=== PATIENT | male | born 1945 ===

== ENCOUNTER 2024-03-06 12:14 | Inpatient (IN) | payer OTHER ==
[~2024-03-06] VITALS: Ht 185.4 cm; Wt 65.8 kg
[2024-03-06] MEDS ORDERED: TYLENOL325 M2 PO (13:50)
[2024-03-06] MEDS ORDERED: BETHANECHOL CHL25 MG PO (13:50)
[2024-03-06] MEDS ORDERED: CELECOXIB200 M1 PO (13:51)
[2024-03-06] MEDS ORDERED: CIPRO250 MG PO (13:51)
[2024-03-06] MEDS ORDERED: VITAMIN B-12100 MCG PO (13:52)
[2024-03-06] MEDS ORDERED: PROSCAR5 M1 PO (13:52)
[2024-03-06] MEDS ORDERED: LEVOTHYROXINE175 MCG PO (13:53)
[2024-03-06] MEDS ORDERED: AMITIZA24 MCG PO (13:53)
[2024-03-06] MEDS ORDERED: MELATONIN5 M7 PO (13:54)
[2024-03-06] MEDS ORDERED: OMEPRAZOLE40 MG PO (13:55)
[2024-03-06] MEDS ORDERED: SEROQUEL50 MG PO (13:57)
[2024-03-06] MEDS ORDERED: SENOKOT8.7 MG PO (13:57)
[2024-03-06] MEDS ORDERED: TRAZODONE100 MG PO (13:58)
[2024-03-06] MEDS ORDERED: FLOMAX0.4 MG PO (13:58)
[2024-03-06] MEDS ORDERED: LORazepam 1 MG TAB PO PRN (14:00)
[2024-03-06] MEDS ORDERED: Ziprasidone Mesylate 20 MG VIAL IM PRN (14:00)
[2024-03-06] MEDS ORDERED: ACETAMINOPHEN 325 MG TAB PO PRN (18:15)
[2024-03-06] MEDS ORDERED: Magnesium Hydroxide 30 ML UDC PO PRN (18:15)
[2024-03-06] MEDS ORDERED: MG-AL HYDROXIDE/SIMETICONE 30 ML UDC PO PRN (18:15)
[2024-03-06] MEDS ORDERED: Menthol/Zinc Oxide 4 GM THIN T PRN (18:20)
[2024-03-06 18:43] VITALS: BP 117/64
[2024-03-06 20:00] VITALS: BP 136/82
[2024-03-06] MEDS ORDERED: Mirtazapine 15 MG TAB PO SCH (21:00)
[2024-03-06] MEDS ORDERED: QUETIAPINE FUMARATE 50 MG TAB PO SCH (21:00)
[2024-03-06] MEDS ORDERED: FINASTERIDE 5 MG TAB PO SCH (21:00)
[2024-03-07] MEDS ORDERED: OMEPRAZOLE 20 MG CAP PO SCH (06:00)
[2024-03-07] MEDS ORDERED: Levothyroxine Sodium 175 MCG TAB PO SCH (06:00)
[2024-03-07 06:44] LABS: BASO % 0.5 % (0.0-1.0); EOS # 0.1 10*3/uL (0.0-0.4); EOS % 1.6 % (1.0-4.0); HEMATOCRIT 34.7 % (42.0-52.0); MEAN CELL VOLUME 99.1 fl (80.0-94.0); MEAN CORPUSCULAR HGB 32.3 pg (27.0-31.0); MEAN CORPUSCULAR HGB CONC 32.6 g/dl (33.0-37.0); MEAN PLATELET VOLUME 10.8 fl (9.6-12.3); MONO # 0.8 10*3/uL (0.1-1.0); MONO % 13.1 % (3.0-9.0); NEUT # 3.5 10*3/uL (2.3-7.9); NEUT % 53.7 % (47.0-73.0); PLATELET COUNT AUTOMATED 431 10*3/uL (130-400); RED CELL DISTRI WIDTH 13.9 % (0-14.5); WHITE BLOOD COUNT 6.4 10*3/uL (4.8-10.8)
[2024-03-07 07:03] LABS: ALKALINE PHOSPHATASE 86 U/L (46-116); BUN 24 mg/dl (9-23); CHLORIDE 104 mmol/L (98-107); CHOLESTEROL 129 mg/dL (<200); LDL CHOLESTEROL 77 mg/dL (9-159); POTASSIUM 4.3 mmol/L (3.4-5.1); TOTAL PROTEIN 6.5 gm/dL (6.0-8.0); TRIGLYCERIDES 80 mg/dl (<150)
[2024-03-07 07:07] LABS: SGPT/ALT < 7 U/L (5-49)
[2024-03-07 07:35] LABS: VITAMIN D, 25-HYDROXY 24.1 ng/mL (30-100)
[2024-03-07 08:00] VITALS: BP 154/83
[2024-03-07] MEDS ORDERED: Lubiprostone 24 MCG CAP PO SCH (09:00)
[2024-03-07] MEDS ORDERED: Rivastigmine Tartrate 4.6 MG/24 HR PATCH T SCH (10:55)
[2024-03-07] MEDS ORDERED: Water, Sterile 10 ML VIAL ONE (12:52)
[2024-03-07] MEDS ORDERED: DIVALPROEX (DR) 250 MG TAB PO SCH (13:00)
[2024-03-07 20:00] VITALS: BP 147/86
[2024-03-07] MEDS ORDERED: Memantine Hydrochloride 5 MG TAB PO SCH (21:00)
[2024-03-07] MEDS ORDERED: AMMONIUM LACTATE 12% LOTION T SCH (22:00)
[2024-03-08 08:00] VITALS: BP 138/78
[2024-03-08] MEDS ORDERED: Cholecalciferol 5,000 IU CAP (125 MCG) PO SCH (09:00)
[2024-03-08 20:00] VITALS: BP 115/74
[2024-03-08] MEDS ORDERED: Memantine Hydrochloride 5 MG TAB PO SCH (21:00)
[2024-03-09 08:00] VITALS: BP 131/75
[2024-03-09] MEDS ORDERED: Rivastigmine Tartrate 9.5 MG/24 HR PATCH T SCH (09:00)
[2024-03-09] MEDS ORDERED: IOHEXOL 300 MG/ML 100 ML VIAL IV ONE (10:00)
[2024-03-09] MEDS ORDERED: Ondansetron Hydrochloride 4 MG TAB PO PRN (15:20)
[2024-03-09] MEDS ORDERED: BISACODYL 5 MG TAB PO PRN (15:20)
[2024-03-09] MEDS ORDERED: SODIUM CHLORIDE 0.9% 500 ML IV ONE (16:00)
[2024-03-09 20:00] VITALS: BP 104/55
[2024-03-09] MEDS ORDERED: Memantine Hydrochloride 10 MG TAB PO SCH (21:00)
[2024-03-10 08:00] VITALS: BP 125/66
[2024-03-10] MEDS ORDERED: hydrOXYzine pamoate 25 MG CAP PO PRN (09:15)
[2024-03-10] MEDS ORDERED: DIVALPROEX SODIUM 125 MG TAB PO SCH (13:00)
[2024-03-10 20:00] VITALS: BP 132/65
[2024-03-11 08:07] VITALS: BP 128/92
[2024-03-11] MEDS ORDERED: RIVASTIGMINE 13.3 MG/24 HR TDM T SCH (09:00)
[2024-03-11] MEDS ORDERED: DIVALPROEX (DR) 250 MG TAB PO SCH (09:00)
[2024-03-11] MEDS ORDERED: BREXPIPRAZOLE 1 MG TABLET PO SCH (09:00)
[2024-03-11] MEDS ORDERED: Water, Sterile 10 ML VIAL ONE (17:32)
[2024-03-11 20:00] VITALS: BP 144/80
[2024-03-12 08:30] VITALS: BP 120/75
[2024-03-12] MEDS ORDERED: Water, Sterile 10 ML VIAL IM PRN (15:45)
[2024-03-12] MEDS ORDERED: clonAZEPAM 0.5 MG TAB PO SCH (17:00)
[2024-03-12 20:00] VITALS: BP 140/85
[2024-03-12] MEDS ORDERED: CELECOXIB 200 MG CAP PO SCH (21:00)
[2024-03-13 08:32] VITALS: BP 135/73
[2024-03-13 09:59] LABS: HEMATOCRIT 35.4 % (42.0-52.0); MEAN CELL VOLUME 98.6 fl (80.0-94.0); MEAN CORPUSCULAR HGB CONC 32.5 g/dl (33.0-37.0); MEAN PLATELET VOLUME 11.4 fl (9.6-12.3); PLATELET COUNT AUTOMATED 375 10*3/uL (130-400); RED BLOOD COUNT 3.59 10*6/uL (4.50-5.90); RED CELL DISTRI WIDTH 14.2 % (0-14.5); WHITE BLOOD COUNT 19.6 10*3/uL (4.8-10.8)
[2024-03-13 10:00] LABS: MANUAL DIFF REFLEX YES
[2024-03-13 10:37] LABS: TOTAL CELLS COUNTED 100 #CELLS
[2024-03-13 10:38] LABS: ACANTHOCYTES FEW; BURR CELLS FEW; PLATELET SUFFICIENCY NORMAL (NORMAL); POLYCHROMASIA SLIGHT; TARGET CELLS FEW
[2024-03-13 10:53] LABS: ALKALINE PHOSPHATASE 92 U/L (46-116); BUN 28 mg/dl (9-23); CHLORIDE 102 mmol/L (98-107); POTASSIUM 4.2 mmol/L (3.4-5.1); TOTAL PROTEIN 6.8 gm/dL (6.0-8.0)
[2024-03-13 11:01] LABS: SGPT/ALT < 7 U/L (5-49)
[2024-03-13] MEDS ORDERED: [UNRECOGNIZED DRUG - OTHER] PO ONE (11:50)
[2024-03-13] MEDS ORDERED: MED. FROM HOME 1 EACH EA PO SCH (12:00)
[2024-03-13] MEDS ORDERED: BISACODYL 10 MG SUPP R ONE (12:30)
[2024-03-13 13:19] LABS: HEMATOCRIT 34.5 % (42.0-52.0); MEAN CELL VOLUME 97.7 fl (80.0-94.0); MEAN CORPUSCULAR HGB 32.3 pg (27.0-31.0); MEAN PLATELET VOLUME 11.6 fl (9.6-12.3); PLATELET COUNT AUTOMATED 340 10*3/uL (130-400); RED BLOOD COUNT 3.53 10*6/uL (4.50-5.90); RED CELL DISTRI WIDTH 14.5 % (0-14.5); WHITE BLOOD COUNT 16.9 10*3/uL (4.8-10.8)
[2024-03-13 13:20] LABS: MANUAL DIFF REFLEX YES
[2024-03-13 13:44] LABS: ACANTHOCYTES FEW; BURR CELLS FEW; OVALOCYTES FEW; PLATELET SUFFICIENCY NORMAL (NORMAL); POLYCHROMASIA SLIGHT; SCHISTOCYTES FEW; TARGET CELLS FEW; TOTAL CELLS COUNTED 100 #CELLS
[2024-03-13 15:51] LABS: BILIRUBIN Negative (Negative); BLOOD 2+ (Negative); CLARITY Cloudy (Clear); COLOR Yellow (Yellow); GLUCOSE Negative (Negative); KETONE 1+ (Negative); NITRITE Negative (Negative); PH 6.5 (4.5-8.0)
[2024-03-13 15:52] LABS: LEUKO ESTERASE 3+ (Negative)
[2024-03-13 15:59] LABS: BACTERIA 4+; WBC 41-50 wbc/hpf (0-5)
[2024-03-13] MEDS ORDERED: Amoxicillin/Clavulanate Pota 875 MG TAB PO SCH (18:00)
[2024-03-13 20:00] VITALS: BP 128/83
[2024-03-14 08:00] VITALS: BP 109/57
[2024-03-14] MEDS ORDERED: DIVALPROEX (DR) 500 MG TAB PO SCH (09:00)
[2024-03-14 09:38] LABS: BASO % 0.3 % (0.0-1.0); EOS # 0.1 10*3/uL (0.0-0.4); EOS % 0.7 % (1.0-4.0); HEMATOCRIT 38.6 % (42.0-52.0); MEAN CORPUSCULAR HGB 32.1 pg (27.0-31.0); MEAN CORPUSCULAR HGB CONC 32.4 g/dl (33.0-37.0); MEAN PLATELET VOLUME 11.7 fl (9.6-12.3); MONO # 1.1 10*3/uL (0.1-1.0); MONO % 11.5 % (3.0-9.0); NEUT # 7.6 10*3/uL (2.3-7.9); NEUT % 80.8 % (47.0-73.0); PLATELET COUNT AUTOMATED 368 10*3/uL (130-400); RED CELL DISTRI WIDTH 14.3 % (0-14.5); WHITE BLOOD COUNT 9.4 10*3/uL (4.8-10.8)
[2024-03-14] MEDS ORDERED: hydrOXYzine hydrochloride 50 MG/ML VIAL IM PRN (15:30)
[2024-03-14] MEDS ORDERED: hydrOXYzine pamoate 25 MG CAP PO PRN (15:30)
[2024-03-14] MEDS ORDERED: AMOXICILLIN 500 MG CAP PO SCH (22:00)
[2024-03-14] MEDS ORDERED: AMOXICILLIN500 M3 PO (22:26)
[2024-03-15 06:36] LABS: ALKALINE PHOSPHATASE 85 U/L (46-116); CHLORIDE 103 mmol/L (98-107); POTASSIUM 3.8 mmol/L (3.4-5.1); SGPT/ALT 12 U/L (5-49); TOTAL PROTEIN 6.9 gm/dL (6.0-8.0)
[2024-03-15 06:39] LABS: BUN 39 mg/dl (9-23)
[2024-03-15 08:32] VITALS: BP 141/69
[2024-03-15] MEDS ORDERED: DIVALPROEX SODIUM 125 MG CAP PO SCH (13:00)
[2024-03-15 20:00] VITALS: BP 132/65
[2024-03-16 08:31] VITALS: BP 110/66
[2024-03-16 20:00] VITALS: BP 124/65
[2024-03-16] MEDS ORDERED: risperiDONE 1 MG ODT BC SCH (21:00)
[2024-03-17 08:33] VITALS: BP 110/60
[2024-03-17 18:40] VITALS: BP 119/89
[2024-03-18 08:00] VITALS: BP 96/40
[2024-03-18 20:00] VITALS: BP 110/60
[2024-03-18] MEDS ORDERED: DULoxetine Hydrochloride 30 MG CAP PO SCH (21:00)
[2024-03-19 08:36] VITALS: BP 110/55
[2024-03-19 20:00] VITALS: BP 135/112
[2024-03-20 08:00] VITALS: BP 95/55
[2024-03-20] MEDS ORDERED: DULoxetine Hydrochloride 30 MG CAP PO SCH (09:30)
[2024-03-20 20:00] VITALS: BP 116/90
[2024-03-21 08:00] VITALS: BP 119/54
[2024-03-21 20:00] VITALS: BP 97/61
[2024-03-22] MEDS ORDERED: GABAPENTIN800 MG PO (00:32)
[2024-03-22 08:00] VITALS: BP 121/56
[2024-03-22 10:25] LABS: BASO % 0.2 % (0.0-1.0); EOS # 0.1 10*3/uL (0.0-0.4); EOS % 0.7 % (1.0-4.0); HEMATOCRIT 33.5 % (42.0-52.0); MEAN CELL VOLUME 99.7 fl (80.0-94.0); MEAN CORPUSCULAR HGB 32.1 pg (27.0-31.0); MEAN CORPUSCULAR HGB CONC 32.2 g/dl (33.0-37.0); MEAN PLATELET VOLUME 11.7 fl (9.6-12.3); MONO # 1.3 10*3/uL (0.1-1.0); MONO % 14.6 % (3.0-9.0); NEUT # 5.9 10*3/uL (2.3-7.9); NEUT % 68.1 % (47.0-73.0); PLATELET COUNT AUTOMATED 280 10*3/uL (130-400); RED BLOOD COUNT 3.36 10*6/uL (4.50-5.90); RED CELL DISTRI WIDTH 14.4 % (0-14.5); WHITE BLOOD COUNT 8.6 10*3/uL (4.8-10.8)
[2024-03-22 10:56] LABS: ALKALINE PHOSPHATASE 70 U/L (46-116); BUN 42 mg/dl (9-23); CHLORIDE 104 mmol/L (98-107); POTASSIUM 3.8 mmol/L (3.4-5.1); SGPT/ALT 8 U/L (5-49)
[2024-03-22 20:00] VITALS: BP 115/40
[2024-03-22] MEDS ORDERED: risperiDONE 1 MG ODT BC SCH (21:00)
[2024-03-22 21:09] VITALS: BP 119/83
[2024-03-23 08:00] VITALS: BP 148/78
[2024-03-23] MEDS ORDERED: risperiDONE 0.5 MG ODT PEG SCH (09:00)
[2024-03-23 20:00] VITALS: BP 134/59
[2024-03-24 07:46] VITALS: BP 146/56
[2024-03-24] MEDS ORDERED: MEMANTINE HCL10 MG PO (08:44)
[2024-03-24] MEDS ORDERED: RIVASTIGMINE1 EAC2 T (08:44)
[2024-03-24] MEDS ORDERED: DULOXETINE HCL30 MG PO (08:44)
[2024-03-24] MEDS ORDERED: RISPERIDONE M-0.5 MG PEG (08:44)
[2024-03-24] MEDS ORDERED: RISPERIDONE1 M1 BC (08:44)
[2024-03-24] MEDS ORDERED: AMOXICILLIN500 M3 PO (15:06)
[2024-03-24 20:00] VITALS: BP 98/56
[2024-03-25 08:00] VITALS: BP 108/60
[2024-03-25 20:00] VITALS: BP 118/70
[2024-03-26 08:00] VITALS: BP 105/48
[2024-03-26 20:00] VITALS: BP 99/54
[2024-03-27 08:06] VITALS: BP 83/57
== END 2024-03-27 13:30 | disposition hospice, home (50) | DRG 883 ==
LOC: 3N 12:14
PROVIDERS: Counselor Professional; Internal Medicine Infectious Disease; Nurse Practitioner; Registered Nurse; ADMIT Psychiatry & Neurology Psychiatry; ATTEND Psychiatry & Neurology Psychiatry
PROC: GZHZZZZ Group Psychotherapy (ICD-10-PCS; principal; 2024-03-07)
PROC: GZ51ZZZ Individual Psychotherapy, Behavioral (ICD-10-PCS; 2024-03-07)
PROC: 0HBRXZZ Excision of Toe Nail, External Approach (ICD-10-PCS; 2024-03-21)
PROC: 0HBRXZZ Excision of Toe Nail, External Approach (ICD-10-PCS; 2024-03-21)
PROC: 0HBRXZZ Excision of Toe Nail, External Approach (ICD-10-PCS; 2024-03-21)
PROC: 0HBRXZZ Excision of Toe Nail, External Approach (ICD-10-PCS; 2024-03-21)
PROC: 0HBRXZZ Excision of Toe Nail, External Approach (ICD-10-PCS; 2024-03-21)
PROC: 0HBRXZZ Excision of Toe Nail, External Approach (ICD-10-PCS; 2024-03-21)
PROC: 0HBRXZZ Excision of Toe Nail, External Approach (ICD-10-PCS; 2024-03-21)
PROC: 0HBRXZZ Excision of Toe Nail, External Approach (ICD-10-PCS; 2024-03-21)
PROC: 0HBRXZZ Excision of Toe Nail, External Approach (ICD-10-PCS; 2024-03-21)
PROC: 0HBRXZZ Excision of Toe Nail, External Approach (ICD-10-PCS; 2024-03-21)
DX: F63.81 Intermittent explosive disorder (principal); E43 Unspecified severe protein-calorie malnutrition; N39.0 Urinary tract infection, site not specified; F33.9 Major depressive disorder, recurrent, unspecified; Z68.1 Body mass index [BMI] 19.9 or less, adult; D53.9 Nutritional anemia, unspecified; D75.839 Thrombocytosis, unspecified; E55.9 Vitamin D deficiency, unspecified; N40.0 Benign prostatic hyperplasia without lower urinary tract symptoms; K21.9 Gastro-esophageal reflux disease without esophagitis; I10 Essential (primary) hypertension; E03.9 Hypothyroidism, unspecified; J84.10 Pulmonary fibrosis, unspecified; N41.9 Inflammatory disease of prostate, unspecified; B95.2 Enterococcus as the cause of diseases classified elsewhere; G30.9 Alzheimer's disease, unspecified; B35.1 Tinea unguium; F02.80 Dementia in other diseases classified elsewhere, unspecified severity, without behavioral disturbance, psychotic disturbance, mood disturbance, and anxiety; Z87.891 Personal history of nicotine dependence; Z79.899 Other long term (current) drug therapy